=== PATIENT | male | born 1965 | race Caucasian/White ===

== ENCOUNTER 2021-06-15 07:34 | Outpatient (CLI) | payer OTHER | END 2021-06-15 07:35 | disposition home or self-care (01) | LOC: CSHULT 07:34 | PROVIDERS: ATTEND Internal Medicine Gastroenterology | DX: K74.60 Unspecified cirrhosis of liver (principal); R16.1 Splenomegaly, not elsewhere classified | CPT/HCPCS: 76700 ==

== ENCOUNTER 2021-06-20 09:48 | Outpatient (CLI) | payer OTHER ==
[2021-06-20 20:44] LABS: SARS-CoV-2 PCR by NAA Not Detected (NotDetected)
== END 2021-06-20 09:49 | disposition home or self-care (01) ==
LOC: CSHLAB 09:48
PROVIDERS: ATTEND Internal Medicine Gastroenterology
DX: Z20.822 Contact with and (suspected) exposure to COVID-19 (principal); K74.60 Unspecified cirrhosis of liver; K63.5 Polyp of colon
CPT/HCPCS: U0003; U0005

== ENCOUNTER 2021-06-23 05:53 | Day surgery (SDC) | payer SELFPAY ==
[2021-06-15 10:22] VITALS: BMI 29.8
[2021-06-23] MEDS ORDERED: Lidocaine 1% MPF 2 ML VIAL ONE (06:35)
[2021-06-23] MEDS ORDERED: Fentanyl 100 MCG/2 ML VIAL ONE (07:20)
[2021-06-23] MEDS ORDERED: Glycopyrrolate 0.2 MG/ML 5 ML SYRINGE ONE (07:22)
[2021-06-23] MEDS ORDERED: PROPOFOL 40 ML ONE ×3 (07:22→08:14)
[2021-06-23] MEDS ORDERED: Lidocaine 1% PF 5 ML VIAL ONE (07:22)
[2021-06-23] MEDS ORDERED: PHENYLEPHRINE-NS 100 MCG/ML 10 ML SYRINGE ONE ×2 (07:23→08:20)
[2021-06-23] MEDS ORDERED: Lidocaine 2% MPF 10 ML AMP (For Epidural Use) ONE (08:42)
[2021-06-23] MEDS ORDERED: Phenylephrine 10 MG/ML VIAL ONE (09:23)
== END 2021-06-23 09:05 | disposition home or self-care (01) ==
LOC: CSHSDC 05:53
PROVIDERS: ATTEND Internal Medicine Gastroenterology
PROC: 0DBN8ZZ Excision of Sigmoid Colon, Via Natural or Artificial Opening Endoscopic (ICD-10-PCS; principal; 2021-06-23)
PROC: 0DJ08ZZ Inspection of Upper Intestinal Tract, Via Natural or Artificial Opening Endoscopic (ICD-10-PCS; principal; 2021-06-23)
DX: K63.5 Polyp of colon (principal); K74.69 Other cirrhosis of liver; K29.70 Gastritis, unspecified, without bleeding; K76.6 Portal hypertension; K31.89 Other diseases of stomach and duodenum; K57.30 Diverticulosis of large intestine without perforation or abscess without bleeding; K64.9 Unspecified hemorrhoids; D64.9 Anemia, unspecified
CPT/HCPCS: 88305; J2370; J2704; J3010

== ENCOUNTER 2021-10-25 09:06 | Outpatient (CLI) | payer OTHER | END 2021-10-25 09:07 | disposition home or self-care (01) | LOC: CSHULT 09:06 | PROVIDERS: ATTEND Internal Medicine Gastroenterology | DX: K74.60 Unspecified cirrhosis of liver (principal); R16.1 Splenomegaly, not elsewhere classified | CPT/HCPCS: 76700 ==

== ENCOUNTER 2021-11-23 09:06 | Outpatient (CLI) | payer OTHER ==
[2021-11-23] MEDS ORDERED: Magnevist 469MG/ML 20 ML VIAL ONE (09:20)
== END 2021-11-23 09:07 | disposition home or self-care (01) ==
LOC: CSHMRI 09:06
PROVIDERS: ATTEND Internal Medicine Gastroenterology
DX: K74.60 Unspecified cirrhosis of liver (principal); R16.1 Splenomegaly, not elsewhere classified
CPT/HCPCS: 74183